=== PATIENT | female | born 1955 | race Caucasian/White ===

== ENCOUNTER → 2018-05-15 | Outpatient (CLI) | payer BC ==
--- NOTE | 2018-05-16 11:22 | MM ---
Reason for exam: screening (asymptomatic). Last mammogram was performed 3 years and 2 months ago. History: Patient is postmenopausal. Family history of breast cancer in aunt at age 60. Took hormonal contraceptives for 5 years beginning at age 18. Physical Findings: A clinical breast exam by your physician is recommended on an annual basis and results should be correlated with mammographic findings. MG 3D Screening Mammo W/Cad Bilateral CC and MLO view(s) were taken. Prior study comparison: March 30, 2015, bilateral MG screening mammo w CAD. April 08, 2013, bilateral digital screening mammo w/CAD. There are scattered fibroglandular densities. There is no discrete abnormality. No significant changes when compared with prior studies. ASSESSMENT: Benign, BI-RAD 2 RECOMMENDATION: Routine screening mammogram of both breasts in 1 year.
== END ==
LOC: RADMAMWWP 10:02
PROVIDERS: ATTEND Family Medicine
DX: Z12.31 Encounter for screening mammogram for malignant neoplasm of breast (principal)
CPT/HCPCS: 77063; 77067

== ENCOUNTER → 2018-07-10 | Outpatient (CLI) | payer BC ==
--- NOTE | 2018-07-10 14:36 | CT ---
EXAMINATION TYPE: CT angio neck DATE OF EXAM: 07/10/2018 HISTORY: Abnormal US. Change in left side from prior scan COMPARISON: None available CT DLP: 271.8 mGycm. Automated Exposure Control for Dose Reduction was Utilized. TECHNIQUE: CTA scan of the neck is performed with IV Contrast, patient injected with 65 mL of Isovue 370, axial images are obtained, coronal and sagittal reformatted images are reviewed. Three-D recons tructed images are created on an independent workstation and reviewed. FINDINGS: Carotid/Vascular Structures: Atheromatous changes are present within the thoracic aorta. The aorta sh ows for super branch vessels. Right vertebral artery is dominant. The innominate, left and right comm on carotid, left and right subclavian arteries are patent. Vertebral arteries are patent. The carotid bulb on the right shows some atheromatous change but no significant stenosis. Internal ca rotid arteries, external carotid arteries are patent. On the left there is a stenosis at the level of the proximal corresponding to approximately 60-70% diameter reduction. Other: Lung apices are remarkable for emphysematous changes. Degenerative disc changes are present in the visualized spine, multilevel facet arthropathy, foraminal encroachment is present. Thyroid gland shows a multinodular appearance. Level the true and false cords thought to be normal. Skull base is normal. Evidence of ventral disease within the maxilla, mucosal disease present within the ethmoid ai r cells.3 IMPRESSION: Hemodynamic significant stenosis of the proximal internal carotid artery in the left. Add itional findings above.
== END ==
LOC: RADCTMAIN 11:12
PROVIDERS: ATTEND Thoracic Surgery (Cardiothoracic Vascular Surgery)
DX: I65.22 Occlusion and stenosis of left carotid artery (principal)
CPT/HCPCS: 70498; Q9967

== ENCOUNTER → 2020-02-12 | Outpatient (CLI) | payer BC ==
--- NOTE | 2020-02-15 11:50 | MM ---
Reason for exam: screening (asymptomatic). Last mammogram was performed 1 year and 9 months ago. History: Patient is postmenopausal. Family history of breast cancer in aunt at age 60. Took hormonal contraceptives for 5 years beginning at age 18. Physical Findings: A clinical breast exam by your physician is recommended on an annual basis and results should be correlated with mammographic findings. MG 3D Screening Mammo W/Cad Bilateral CC and MLO view(s) were taken. Prior study comparison: May 15, 2018, bilateral MG 3d screening mammo w/cad. March 30, 2015, bilateral MG screening mammo w CAD. There are scattered fibroglandular densities. No significant changes when compared with prior studies. ASSESSMENT: Benign, BI-RAD 2 RECOMMENDATION: Routine screening mammogram of both breasts in 1 year.
== END | disposition home or self-care (01) ==
LOC: RADMAMWWP 09:34
PROVIDERS: ATTEND Family Medicine
DX: Z12.31 Encounter for screening mammogram for malignant neoplasm of breast (principal)
CPT/HCPCS: 77063; 77067

== ENCOUNTER → 2020-04-26 | Outpatient (CLI) | payer BC ==
--- NOTE | 2020-04-26 13:06 | CT ---
EXAMINATION TYPE: CT angio neck DATE OF EXAM: 04/26/2020 HISTORY: Carotid stenosis COMPARISON: CTA neck July 10, 2018 CT DLP: 232 mGycm. Automated Exposure Control for Dose Reduction was Utilized. TECHNIQUE: CTA scan of the neck is performed with IV Contrast, patient injected with 65 mL of Isovue 370, axial images are obtained, coronal and sagittal reformatted images are reviewed. 3-D reconstruc tion images are created on an independent workstation and reviewed. FINDINGS: Carotid/Vascular Structures: [id number] mixed plaque in the aortic arch redemonstrated . 4 vess el origin from aortic arch which is normal variant. Moderate posterior calcified plaque at origin of right brachiocephalic artery without significant stenosis axial image 14. Right common carotid artery shows normal origin from right brachiocephalic artery. Mild calcified plaque along course of the rig ht common carotid artery without significant stenosis. There is more moderate mixed plaque at right c arotid bulb extending into proximal internal and external carotid arteries without significant stenos is. There is mild to moderate calcified plaque in the petrous and supraclinoid segment of the distal right internal carotid artery without significant stenosis. Mild narrowing at origin of left common carotid artery redemonstrated. Mild to moderate mixed plaque along the course of the left common carotid artery redemonstrated. There is more severe mixed plaque in left carotid bulb extending into proximal internal carotid artery causing short segment significan t stenosis of the left internal carotid artery near axial image 51. Length of segment nearly 1.0 cm. Lumen diameter narrowed to 1.1 mm on the reconstructed images with reconstitution to 4.8 mm distally. Interval progression from prior study thought present. Remainder left internal carotid artery shows no new plaque or stenosis. Codominant vertebrobasilar system patent to basilar junction. Other: Mild to moderate spurring and disc space narrowing at C5-C6 and C6-C7 levels with subtle spond ylolisthesis. Multilevel uncovertebral facet degenerative changes throughout the cervical spine redem onstrated. There is redemonstration of 1.8 cm heterogeneous lower pole left thyroid nodule. Moderate mucosal thickening in the left maxillary sinus is now present with mild to moderate mucosal thickening throughout the ethmoid sinuses bilaterally on current study and mild mucosal thickening po sterior in the left sphenoid sinus. IMPRESSION: Significant stenosis in the left internal carotid artery over a 1.0 cm segment with calcu lated diameter narrowing approaching 80% on current study, interval narrowing progression from prior CTA noted. Considering angiogram for further evaluation and possible endovascular treatment.
== END | disposition home or self-care (01) ==
LOC: RADCTMAIN 11:35
PROVIDERS: ATTEND Thoracic Surgery (Cardiothoracic Vascular Surgery)
DX: I65.22 Occlusion and stenosis of left carotid artery (principal)
CPT/HCPCS: 70498; Q9967

== ENCOUNTER → 2020-12-02 | Outpatient (CLI) | payer BC | END | disposition home or self-care (01) | DX: R22.41 Localized swelling, mass and lump, right lower limb (principal) ==

== ENCOUNTER → 2021-01-05 | Outpatient (CLI) | payer BC ==
--- NOTE | 2021-01-05 10:09 | CT ---
EXAMINATION TYPE: CT lower extremity RT w con DATE OF EXAM: 01/05/2021 COMPARISON: Right lower extremity ultrasound December 02, 2020 HISTORY: Localized swelling/mass/lump right thigh CT DLP: 302 mGycm Automated exposure control for dose reduction was used. CONTRAST: Performed with IV Contrast, patient injected with 100 mL of Isovue 300. FINDINGS: Imaging focus is on the right femur does not extend to right knee level however. There is partial vis ualization of fixating hardware distal femur through healed fracture distal diaphyseal level. Abnorma l medial angulation at site of healed fracture is present. Moderate axial joint space loss right hip symmetric tops of left hip on localizer. No suspicious focal osseous lesion or destruction. Muscle bulk is preserved. There is no suspicious solid or cystic mass or abnormal fluid collection is seen with particular attention to lateral thigh at area of ultrasound concern. Some fatty tissue den sity is present favoring deep subcutaneous fat over focal lipoma given nonround or oval shape. No roland in hernia or adenopathy. No suspicious enhancement. IMPRESSION: NO CONCERNING MASS OR ADENOPATHY.
== END | disposition home or self-care (01) ==
LOC: RADCTMAIN 09:15
PROVIDERS: ATTEND Family Medicine
DX: R22.41 Localized swelling, mass and lump, right lower limb (principal)
CPT/HCPCS: 73701; Q9967

== ENCOUNTER → 2021-04-06 | Outpatient (CLI) | payer BC ==
--- NOTE | 2021-04-10 09:48 | MM ---
Reason for exam: screening (asymptomatic). Last mammogram was performed 1 year and 2 months ago. History: Patient is postmenopausal. Family history of breast cancer in aunt at age 60. Took hormonal contraceptives for 5 years beginning at age 18. Physical Findings: A clinical breast exam by your physician is recommended on an annual basis and results should be correlated with mammographic findings. MG 3D Screening Mammo W/Cad Bilateral CC and MLO view(s) were taken. Prior study comparison: February 12, 2020, bilateral MG 3d screening mammo w/cad. May 15, 2018, bilateral MG 3d screening mammo w/cad. There are scattered fibroglandular densities. ASSESSMENT: Negative, BI-RAD 1 RECOMMENDATION: Routine screening mammogram of both breasts in 1 year.
== END | disposition home or self-care (01) ==
LOC: RADMAMWWP 09:42
PROVIDERS: ATTEND Family Medicine
DX: Z12.31 Encounter for screening mammogram for malignant neoplasm of breast (principal); Z80.3 Family history of malignant neoplasm of breast; Z78.0 Asymptomatic menopausal state
CPT/HCPCS: 77063; 77067

== ENCOUNTER → 2022-01-05 | Outpatient (CLI) | payer MEDICARE ==
--- NOTE | 2022-01-05 11:12 | BD ---
EXAMINATION TYPE: Axial Bone Density DATE OF EXAM: 01/05/2022 COMPARISON: FIRST DEXA AT [facility] CLINICAL HISTORY: 66 years year old Female. ICD-10 CODE: Z78.0 MENOPAUSAL STATE Height: 64.5IN Weight: 141 FRAX RISK QUESTIONS: History of Fracture in Adulthood: YES Secondary Osteoporosis: Current Tobacco Use: YES RISK FACTORS HISTORY OF: Hip Fracture (Right/Left): RIGHT FEMUR When: AGE 21 Surgery to Hip(right/left)/Wrist (right/left): RIGHT FEMUR/HIP/PELVIS When: AGE 21 Postmenopausal woman: YES MEDICATIONS: Additional Medications: BP MEDS, CHOLESTEROL MED, Additional History: EXAM MEASUREMENTS: Bone mineral densitometry was performed using the [employer]eem[employer] System. Bone mineral density as measured about the Lumbar spine is: ----- L1-L4(G/cm2): 1.322 T Score Values are as follows: ----- L1: 0.8 ----- L2: 0.6 ----- L3: 1.3 ----- L4: 1.7 ----- L1-L4: 1.2 FIRST DEXA AT [facility] Bone mineral density about the L hip (g/cm2): 1.013 T Score values are as follows: -----L Neck: -0.8 -----L Total: 0.0 FIRST DEXA AT [facility] FRAX%s: The graph provided illustrates a 12.3% chance for a major osteoporotic fx and a 1.4% chance f or the hips probability for fx in 10 years time. IMPRESSION: Normal (Values between +1 and -1 indicate normal bone mass). Consider repeating this study in 5 year s or sooner if there is some new clinical indication. NOTE: T-SCORE=SD OF THE YOUNG ADULT MEAN.
== END | disposition home or self-care (01) ==
LOC: RADBDWWP 09:54
PROVIDERS: ATTEND Family Medicine
DX: Z78.0 Asymptomatic menopausal state (principal)
CPT/HCPCS: 77080

== ENCOUNTER → 2022-04-25 | Outpatient (CLI) | payer MEDICARE ==
--- NOTE | 2022-04-25 13:42 | MM ---
Reason for Exam: Screening (asymptomatic). Last screening mammogram was performed 12 month(s) ago. Patient History: Menarche at age 15. First Full-Term at age 18. Postmenopausal. Hormonal Contraceptives for 5 years from age 18 until age 26. Maternal aunt had breast cancer, age 60. Risk Values: Kyleigh 5 year model risk: 1.1%. NCI Lifetime model risk: 4.2%. Prior Study Comparison: 03/30/2015 Bilateral Screening Mammogram, [facility]. 05/15/2018 Bilateral Screening Mammogram, [facility]. 02/12/2020 Bilateral Screening Mammogram, [facility]. 04/06/2021 Bilateral Screening Mammogram, [facility]. Tissue Density: There are scattered fibroglandular densities. Findings: Analyzed By CAD. There is no suspicious group of microcalcifications or new suspicious mass in either breast. Overall Assessment: Benign, BI-RAD 2 Management: Screening Mammogram of both breasts in 1 year. A clinical breast exam by your physician is recommended on an annual basis and results should be correlated with mammographic findings. Electronically signed and approved by: Sohail Steele M.D. Radiologis
== END | disposition home or self-care (01) ==
LOC: RADMAMWWP 11:17
PROVIDERS: ATTEND Family Medicine
DX: Z12.31 Encounter for screening mammogram for malignant neoplasm of breast (principal); Z78.0 Asymptomatic menopausal state; Z80.3 Family history of malignant neoplasm of breast
CPT/HCPCS: 77063; 77067

== ENCOUNTER 2023-07-30 08:57 | Day surgery (SDC) | payer MEDICARE ==
[2023-07-25 17:03] VITALS: BMI 22.6
[~2023-07-30 08:57] MED LIST: LIDOCAINE 1% (10MG/ML) FOR IV START INTRADERMA PRN
[2023-07-30] MEDS: LACTATED RINGERS 1,000 ML IV SCH (09:18)
[2023-07-30] MEDS ORDERED: LIDOCAINE 1% INJ 10MG/ML (20 ML MDV) ONE (09:40)
[2023-07-30] MEDS ORDERED: PROPOFOL 10 MG/ML 20 ML VIAL IV ONE (09:40)
[2023-07-30 09:48] VITALS: TEMP 97.6
--- NOTE | 2023-07-30 10:05 | P.PCN ---
Date of Procedure: 07/30/23 Procedure(s) Performed: BRIEF HISTORY: Patient is a 67-year-old pleasant white female scheduled for an elective colonoscopy as a part of screening for colon cancer. PROCEDURE PERFORMED: Colonoscopy. PREOPERATIVE DIAGNOSIS: Screening for colon cancer. IV sedation per Anesthesia. PROCEDURE: After informed consent was obtained, the patient, was brought into the endoscopy unit. IV sedation was administered by Anesthesia under continuous monitoring. Digital rectal examination was normal. Initially the Olympus CF-160 flexible video colonoscope was then inserted in the rectum, gradually advanced into the cecum without any difficulty. Careful examination was performed as the scope was gradually being withdrawn. Ileocecal valve and the appendiceal orifice were visualized and appeared normal. Prep was excellent. Mucosa of the cecum, ascending colon, transverse colon, descending colon, sigmoid colon, and rectum appeared normal. Scattered sigmoid diverticulosis R screeningetroflexion was performed in the rectum and no lesions were seen. The patient tolerated the procedure well. IMPRESSION: Normal-appearing colon from rectum to cecum with no evidence of colorectal neoplasia . scattered sigmoid diverticulosis RECOMMENDATIONS: Findings of this examination were discussed with the patient as well as a family. She was advised to have a repeat screening colonoscopy in 10 years..
[2023-07-30 10:23] VITALS: PULSE 69
[2023-07-30 10:56] VITALS: BP 120/68; RESP 20
== END 2023-07-30 10:54 | disposition home or self-care (01) ==
LOC: ORWHC2ENDO 08:57
PROVIDERS: ATTEND Internal Medicine Gastroenterology
DX: Z12.11 Encounter for screening for malignant neoplasm of colon (principal); K57.30 Diverticulosis of large intestine without perforation or abscess without bleeding; Z86.010 Personal history of colon polyps; I10 Essential (primary) hypertension; E78.5 Hyperlipidemia, unspecified; F17.200 Nicotine dependence, unspecified, uncomplicated; Z88.5 Allergy status to narcotic agent; Z88.8 Allergy status to other drugs, medicaments and biological substances; Z79.899 Other long term (current) drug therapy; Z79.82 Long term (current) use of aspirin
CPT/HCPCS: J2001; J2704; G0105; 45378

== ENCOUNTER → 2024-04-07 | Outpatient (CLI) | payer MEDICARE ==
--- NOTE | 2024-04-12 15:31 | MM ---
Reason for Exam: Screening (asymptomatic). Last mammogram was performed 2 year(s) and 0 month(s) ago. Patient History: Menarche at age 15. First Full-Term at age 18. Postmenopausal. Hormonal Contraceptives for 5 years from age 18 until age 26. Maternal aunt had breast cancer, age 60. Risk Values: Kyleigh 5 year model risk: 1.1%. NCI Lifetime model risk: 3.8%. Prior Study Comparison: 02/12/2020 Bilateral Screening Mammogram, [facility]. 04/06/2021 Bilateral Screening Mammogram, [facility]. 04/25/2022 Bilateral MG 3D screening mammo w/cad, [facility]. Tissue Density: There are scattered areas of fibroglandular density. Findings: Analyzed By CAD. The pattern is symmetrical. Pattern appears symmetrical and stable. Chronic nodularity is within the right breast. Benign calcifications present bilaterally No suspicious groups of microcalcifications, spiculated or lobular masses, architectural distortion or other secondary signs of malignancy are mammographically apparent. Overall Assessment: Benign, BI-RAD 2 Management: Screening Mammogram of both breasts in 1 year. A negative mammogram report should not preclude additional follow up of suspicious palpable abnormalities. Patient should continue monthly self breast exam. A clinical breast exam by your physician is recommended on an annual basis and results should be correlated with mammographic findings. Note on Kyleigh scores and lifetime risk: 1. A Kyleigh score greater than 3% is considered moderate risk. If this is the case, consider specialist referral to assess eligibility for a risk reducing agent. 2. If overall lifetime risk for the development of breast cancer is 20% or higher, the patient may qualify for future screening with alternating mammogram and breast MRI. [facility], , 04/12/2024 3:28 PM. Electronically signed and approved by: Mich Schaffer D.O. Radiologis
== END | disposition home or self-care (01) ==
LOC: RADMAMWWP 09:56
PROVIDERS: ATTEND Family Medicine
DX: Z12.31 Encounter for screening mammogram for malignant neoplasm of breast (principal); R92.323 Mammographic fibroglandular density, bilateral breasts; Z78.0 Asymptomatic menopausal state; Z80.3 Family history of malignant neoplasm of breast
CPT/HCPCS: 77063; 77067

== ENCOUNTER → 2024-08-18 | Outpatient (CLI) | payer MEDICARE ==
--- NOTE | 2024-08-18 13:19 | CTL ---
EXAMINATION TYPE: CT Low Dose Lung DATE OF EXAM ORDERED: 08/18/2024 COMPARISON: None CLINICAL INDICATION: Female, 68 years old with history of Z12.2 SCREENING LUNG CA F17.210 CURRENT SMO KER; [facility], Current smoker. 1PPD x40yrs, Lung cancer screening, History of Smoking/tobacco use. TECHNIQUE: Low dose computed tomography scan was performed through the chest at 1 mm thick sections a nd reconstructed images in multiple planes at 1 mm and [address] DLP: 81.[address] CTDI: 2.1 mGy Automated exposure control for dose reduction was used. CT DIAGNOSTIC QUALITY: Satisfactory EXAMINATION TYPE: CT Low Dose Lung DATE OF EXAM ORDERED: 08/18/2024 CLINICAL INDICATION: Female, 68 years old with history of Z12.2 SCREENING LUNG CA F17.210 CURRENT SMO KER, history of tobacco use, Lung cancer screening CT DLP: 81.[address] CTDI: 2.1 mGy Automated exposure control for dose reduction was used. Comparison: None TECHNIQUE: Low dose computed tomography scan was performed through the chest at 1 mm thick sections a nd reconstructed images in multiple planes at 1 mm and [address] DIAGNOSTIC QUALITY: Satisfactory FINDINGS: There are a few scattered sub-3 mm nodules. There is no suspicious lung mass or nodule The lungs are clear and there is no abnormal airspace consolidation or interstitial density. There is no mediastinal, hilar or axillary adenopathy. There is no pleural effusion, pleural thickening or pneumothorax. No focal osseous lesions are seen. Limited scans the upper abdomen reveals no gross abnormality IMPRESSION: 1. Lung rads Category 2 benign. Continue routine screening at yearly intervals. 2. No acute cardiopulmonary disease. [facility], , 08/18/2024 1:16 PM
== END | disposition home or self-care (01) ==
LOC: RADCTMAIN 12:36
PROVIDERS: ATTEND Family Medicine
DX: Z12.2 Encounter for screening for malignant neoplasm of respiratory organs (principal); F17.210 Nicotine dependence, cigarettes, uncomplicated
CPT/HCPCS: 71271